=== PATIENT | female | born 2000 | race Caucasian/White ===

== ENCOUNTER 2024-10-06 15:00 | Emergency (ER) | payer MEDICAID ==
[~2024-10-06] VITALS: Ht 172.7 cm; Wt 135.0 kg
[2024-10-06 15:06] VITALS: O2SAT 100
[2024-10-06] MEDS: SODIUM CHLORIDE 0.9% 1,000 ML IV ONE (15:35)
[2024-10-06 16:09] LABS: BASOPHILS % 0.4 % (0.0-2.0); EOSINOPHILS % 1.4 % (0.0-5.0); HEMATOCRIT. 39.5 % (36.0-48.0); HEMOGLOBIN. 12.7 g/dL (12.0-16.0); LYMPHOCYTES % 10.8 % (20.0-50.0); MEAN PLATELET VOLUME 7.4 fl (7.4-10.4); MONOCYTES % 3.9 % (2.0-8.0); NEUTROPHILS % 83.5 % (40.0-76.0); PLATELET 265 x1000/uL (130-400); RED BLOOD CELL COUNT 4.36 mill/uL (4.2-5.4); RED CELL DISTRIBUTION WIDTH 14.6 % (11.6-14.6)
[2024-10-06 16:12] LABS: CREATININE 0.8 mg/dL (0.6-1.0); ETHANOL BLOOD < 10 mg/dL (<10); UREA NITROGEN BLOOD 12 mg/dL (9-23)
[2024-10-06 17:30] LABS: HCG SCREEN NEGATIVE
[2024-10-06] MEDS ORDERED: NALO4SPR BOTHNSTRLS (19:23)
[2024-10-06 19:35] VITALS: BP 125/78; PULSE 82; RESP 14; TEMP 36.5; O2SAT 98
== END 2024-10-06 19:50 | disposition home or self-care (01) ==
LOC: ER 15:00
DX: T40.411A Poisoning by fentanyl or fentanyl analogs, accidental (unintentional), initial encounter (principal); J45.909 Unspecified asthma, uncomplicated; Z88.0 Allergy status to penicillin; F14.90 Cocaine use, unspecified, uncomplicated; Z79.899 Other long term (current) drug therapy; Y92.89 Other specified places as the place of occurrence of the external cause
CPT/HCPCS: 80048; 80320; 84703; 85025; 36415; 96360; 99285; J7030; Z7610; G0480